=== PATIENT | female | born 1990 | race Caucasian/White ===

== ENCOUNTER → 2016-10-15 | Outpatient (CLI) | payer OTHER ==
[~2016-10-15] MED LIST: BENZ5GEL TOP
--- NOTE | 2016-10-15 18:41 | DIAGNOSTIC IMAGING REPORT ---
CHEST 2 VIEWS ROUTINE HISTORY: COUGH COMPARISON: None. FINDINGS: The lungs are clear. Cardiac silhouette is normal in size. No pleural effusions. No pneumothorax. IMPRESSION: No acute process. Electronically signed by: Rodger Montoya M.D. 10/15/2016 6:39 PM Dictated Date/Time: 10/15/2016 6:38 PM
== END | disposition home or self-care (01) ==
LOC: C.RAD 18:02
PROVIDERS: ATTEND Internal Medicine Geriatric Medicine
DX: R05 Cough (principal)

== ENCOUNTER → 2018-04-05 | Outpatient (CLI) | payer OTHER ==
--- NOTE | 2018-04-05 15:14 | DIAGNOSTIC IMAGING REPORT ---
ULTRASOUND R VENOUS DOPP LOWER EXT UNILAT CLINICAL HISTORY: Right inguinal and leg pain. COMPARISON STUDY: No previous studies for comparison. FINDINGS: Real-time and color flow Doppler imaging were performed. Flow was seen within the femoral, popliteal and calf veins with no intraluminal thrombus demonstrated. The saphenous vein is patent. IMPRESSION: No evidence of right lower extremity DVT Electronically signed by: Omi Guardado M.D. 04/05/2018 3:13 PM Dictated Date/Time: 04/05/2018 3:13 PM
--- NOTE | 2018-04-05 15:30 | DIAGNOSTIC IMAGING REPORT ---
RIGHT ILIAC VENOUS ULTRASOUND CLINICAL HISTORY: Right groin pain. COMPARISON STUDY: No previous studies for comparison. TECHNIQUE: Color and Doppler sonography of the right common iliac and external iliac veins was performed. FINDINGS: The right common iliac and external iliac veins are patent without evidence for thrombus. Please note that the right lower extremity Doppler ultrasound will be reported separately. IMPRESSION: No right common or external iliac vein thrombus. Electronically signed by: Neto Cruz M.D. 04/05/2018 3:28 PM Dictated Date/Time: 04/05/2018 3:26 PM
== END | disposition home or self-care (01) ==
LOC: C.ULTR 14:03
PROVIDERS: ATTEND Family Medicine Adult Medicine
DX: R10.30 Lower abdominal pain, unspecified (principal)

== ENCOUNTER 2020-11-24 10:29 | Inpatient (IN) ==
[2020-11-24] MEDS ORDERED: OXYTOCIN 30 UNITS/500 ML BAG IV PRN ×3 (11:44→23:59)
--- NOTE | 2020-11-24 11:55 | History & Physical Report ---
Date of Service November 24, 2020 Assessment & Plan (1) PROM (premature rupture of membranes): PROM at 0730 this AM. Amnisure test positive on admission. PNL: Rh pos, RI, GBS neg, COVID neg Admit, labs, start IV Epidural when desired; anesthesiology consult placed Proceed with induction of labor per Pitocin augmentation protocol. Anticipate . History of Present Illness Primary Care Provider: Juliet Ambrose MD Tamera Navarrete is a 30 y/o female currently at 40+5 WGA with an LUCY 11/19/20 as determined by US#1 who is here for with prom. Her was complicated by COVID + infection in August 2020; now asymptomatic. She states that around 0730 this AM, she felt a large gush of fluid that has been followed by a persistent "trickle" of fluid. The fluid is described as clear with a pink tinge. It is noted that patient had sexual intercourse around 1:00pm yesterday afternoon (11/23/20). No gross vaginal bleeding. Contractions have been irregular over the past week; she feels that they have increased in intensity and frequency this morning but they are still irregular and not time-able. + movement. AmniSure ROM test (+) on presentation to L&D. Had regular appointments with OB. Blood type: O+ Antibody screen: neg Labs 04/25/20 Rubella: immune VDRL/RPR: NR Gonorrhea: neg Chlamydia: neg HIV: neg HbSAg: neg GBS: negative 10/23/2020 COVID-19 negative today, 11/24/20 Other screens: CF/SMA negative 04/25/20 Allergies Allergy/AdvReac Type Severity Reaction Status Date / Time No Known Drug Allergies Allergy Unknown Verified 11/24/20 10:57 Home Medications Medication Instructions Recorded Confirmed Type prenat.vits,luis,hoo-jiub-vqjhm 1 tab PO DAILY 02/24/19 11/24/20 History Patient History Medical History Anemia COVID-19 affecting , antepartum 08/14/20 Encounter for anatomic survey Family history of factor V deficiency Patient tested negative History of dysplastic nevus History of migraine Shortness of breath with exposure to COVID-19 virus Surgical History H/O knee surgery R knee. H/O oral surgery [place] teeth - 2009'. Family History Father Alcohol abuse Mother Factor V Leiden mutation Skin cancer Aunt Ovarian cancer age 30's Breast cancer 2 maternal aunts- 40's and 50's Myocardial infarction age 40's Grandfather Prostate cancer age 40's Denies family history of Colorectal cancer Social History Smoking Status: Never smoker Hx Alcohol Use: No Hx Substance Use: No Preferred Language: Malaysian Communication Ability: Effective Visual Impairment: No Limitations Hearing Ability: Normal Language Specialist Required: No Beliefs That Will Affect Care: None marital status: marital status details: Nathan (33) [phone] Current Living Situation: Spouse Current Living Situation Comment: Nathan- current occupational status: employed current occupation: RN with [employer] Other Information That Helps Us Care for You: No Feels Safe at Home: Yes Safety Concerns: Feels Safe At This Time Childhood Exposure to Second-Hand Smoke: Yes Dental Care, Regularly: Yes Physical Activity Frequency: 5-6 Times per Week Seatbelt Use: always Sunscreen Use: Yes Assistive Devices: None Review of Systems Denies fever or chills. Denies shortness of breath or cough. Denies chest pain. Denies breast pain. Denies dysuria or hematuria. Denies leg pain or leg swelling. Denies headache or changes in vision. Physical Exam Physical Exam: General: Alert, oriented. No acute distress. Cardiac: Regular rate and rhythm, no murmurs/rubs/gallops. Respiratory: Clear to auscultation bilaterally a/p, no wheezes/rales/rhonchi. No increased work of breathing. Symmetrical chest rise. No respiratory distress. Abdomen: Gravid. Vertex position. + heart tones. - palpable contractions. EFW 7-8# Pelvic: Dilation 2.5 cm; Effacement 75%; Station -2; anterior; soft per Dr. Simons External FHT and external uterine monitors used; Category I tracing; moderate FHT variability. Lower Extremities: No lower extremity edema or swelling. No deep calf pain. Results & Data ([facility]) Vital Signs (Past 12 Hours) Vital Signs Temp Pulse Resp BP 11/24/20 10:44 37.0 C 20 11/24/20 10:41 99 H 141/84 H Laboratory Results 11/24/20 11/24/20 11/24/20 Range/Units 12:08 11:57 11:55 WBC 12.52 H (4.8-10.8) K/uL RBC 4.00 L (4.2-5.4) M/uL Hgb 12.7 (12.0-16.0) g/dL Hct 37.7 (37-47) % MCV 94.3 (80-100) fL MCH 31.8 (25-34) pg MCHC 33.7 (32-36) g/dL RDW Std Deviation 48.5 H (36.4-46.3) fL RDW Coeff of Riccardo 14.1 (11.5-14.5) % Plt Count 232 (130-400) K/uL MPV 10.0 (7.4-10.4) fL Amniotic Protein Pending COVID-19 Eval Order SARS-CoV-2, RNA, NAAT NEGATIVE (NEGATIVE) 11/24/20 Range/Units 11:55 WBC (4.8-10.8) K/uL RBC (4.2-5.4) M/uL Hgb (12.0-16.0) g/dL Hct (37-47) % MCV (80-100) fL MCH (25-34) pg MCHC (32-36) g/dL RDW Std Deviation (36.4-46.3) fL RDW Coeff of Riccardo (11.5-14.5) % Plt Count (130-400) K/uL MPV (7.4-10.4) fL Amniotic Protein COVID-19 Eval Order Covid19 [facility] SARS-CoV-2, RNA, NAAT (NEGATIVE) Supervising Physician Co-Signing Physician Notes Patient seen and evaluated and agree with the above findings and plan. Resident Activity Tracking Resident Involvement: Resident Care Provided Care Provided: OB Delivery
[2020-11-24 12:06] LABS: Hematocrit (blood only) 37.7 % (37-47); Hemoglobin 12.7 g/dL (12.0-16.0); Mean Corpuscular Hemoglobin 31.8 pg (25-34); Mean Corpuscular Hgb Conc 33.7 g/dL (32-36); Mean Corpuscular Volume 94.3 fL (80-100); Platelet Count 232 K/uL (130-400); RDW Coefficient of Variation 14.1 % (11.5-14.5); RDW Standard Deviation 48.5 fL (36.4-46.3); White Blood Count 12.52 K/uL (4.8-10.8)
[2020-11-24] MEDS: LACTATED RINGER'S 1,000 ML IV PRN ×2 (13:09→16:41)
--- NOTE | 2020-11-24 15:14 | Labor Progress Brief Note ---
Date of Service November 24, 2020 Subjective Reason For Note: Other went into room to introduce myself to patient as my partner had been involved in her admission and I am drafter electronic. she is receiving pitocin. no pain issues. Assessment & Plan (1) PROM (premature rupture of membranes): (2) Supervision of normal intrauterine in primigravida: pitocin infusing. couple deny questions. fetus categ 1 Admission and Anticipated Discharge Date Admission Date: November 24, 2020 Physical Exam Genitourinary: OB Exam Monitor Tracing: + external FHT monitor used (140 mod variability), + external uterine monitor used (irreg), + category I and + normal FHT variability Results & Data ([facility]) Vital Signs (Past 12 Hours) Vital Signs Temp Pulse Resp BP 11/24/20 15:09 101 H 105/64 11/24/20 14:16 91 H 123/75 11/24/20 13:09 95 H 119/80 11/24/20 12:50 98.4 F 11/24/20 10:44 98.6 F 11/24/20 10:41 99 H 141/84 H Coding Level of Care Code None Diagnoses PROM (premature rupture of membranes) O42.90 Supervision of normal intrauterine in primigravida Z34.00
[2020-11-24] MEDS ORDERED: ePHEDrine sulfate 50 MG/ML AMP ONE (15:34)
[2020-11-24] MEDS ORDERED: SODIUM CHLORIDE 0.9% INJ 10 ML VIAL ONE (15:34)
[2020-11-24] MEDS ORDERED: fentaNYL citrate 100 MCG/2 ML VIAL ONE (15:35)
[2020-11-24] MEDS ORDERED: BUPIVACAINE 0.25% 30 ML VIAL ONE (15:35)
[2020-11-24] MEDS ORDERED: fentaNYL 2MCG/ML ROPIVACAINE 1.25MG/ML 100 ML BAG EPI ONE (15:36)
--- NOTE | 2020-11-24 16:12 | Labor Progress Brief Note ---
Date of Service November 24, 2020 Subjective Reason For Note: Routine Evaluation pt having more pain, pit at 7 Assessment & Plan (1) PROM (premature rupture of membranes): (2) Post term over 40 weeks: (3) Thick meconium stained amniotic fluid: good cx change. c/w pit. fhts categ 1. answered pt questions re: meconium. desires epidural, will consult anesthesia Admission and Anticipated Discharge Date Admission Date: November 24, 2020 Physical Exam Constitutional: WD/WN, vitals as above Genitourinary: Manual OB Exam: + cervical dilation (4-5), + cervical effacement 90%, + station 0 and + amniotic fluid (AROM forebag) meconium OB Exam Monitor Tracing: + external FHT monitor used (135 mod variability), + external uterine monitor used (q2-4), + category I and + normal FHT variability [facility] ([facility]) Vital Signs (Past 12 Hours) Vital Signs Temp Pulse Resp BP 11/24/20 15:09 97.9 F 101 H 18 105/64 11/24/20 14:16 91 H 123/75 11/24/20 13:09 95 H 119/80 11/24/20 12:50 98.4 F 20 11/24/20 10:44 98.6 F 20 11/24/20 10:41 99 H 141/84 H Coding Level of Care Code None Diagnoses PROM (premature rupture of membranes) O42.90 Post term over 40 weeks O48.0 Thick meconium stained amniotic fluid P96.83
--- NOTE | 2020-11-24 16:39 | Anesthesiology Consultation ---
Date of Service November 24, 2020 Assessment & Plan Chart Review Chart Review: Acceptable Risk for Labor Epidural Consults Requested medical & cardiac Pulmonary ASA ASA2 Proposed Anesthesia Anesthesia Type: Labor Epidural Risk / Benefits Reviewed With: PT / POA / Parent / Guardian, Accepts Plan and Informed Consent Obtained History Height/Weight Height: 5 ft 4 in Weight: 84.822 kg Allergies Allergy/AdvReac Type Severity Reaction Status Date / Time No Known Drug Allergies Allergy Unknown Verified 11/24/20 10:57 Medications Home Medications Medication Instructions Recorded Confirmed Last Taken prenat.vits,luis,nyc-gjgf-dktdv 1 tab PO DAILY 02/24/19 11/24/20 11/23/20 18:00 Active Medications Generic Name Dose Route Start Last Admin Trade Name Freq PRN Reason Stop Dose Admin Oxytocin 30 units in 500 mls @ 9 mls/hr 11/24/20 11:44 11/24/20 16:05 Pitocin IV 11/26/20 11:43 0.54 units/hr .Q24H PRN 9 mls/hr Labor Induction/Augmentation Titration Protocol 0.54 UNITS/HR Lactated Ringer's 1,000 mls @ 125 mls/hr 11/24/20 11:44 11/24/20 13:09 Lr IV 11/26/20 11:43 125 mls/hr .Q8H PRN Administration L&D Protocol Protocol Past Medical History Medical History Anemia COVID-19 affecting , antepartum 08/14/20 Encounter for anatomic survey Family history of factor V deficiency Patient tested negative History of dysplastic nevus History of migraine Shortness of breath with exposure to COVID-19 virus Past Family History Family History Father Alcohol abuse Mother Factor V Leiden mutation Skin cancer Aunt Ovarian cancer age 30's Breast cancer 2 maternal aunts- 40's and 50's Myocardial infarction age 40's Grandfather Prostate cancer age 40's Denies family history of Colorectal cancer Past Surgical History Surgical History H/O knee surgery R knee. H/O oral surgery [place] teeth - . Social History Smoking Status: Never smoker Hx Alcohol Use: No Hx Substance Use: No Physical Exam Vital Signs Last Vital Signs Temp 36.6 C 11/24/20 15:09 Pulse 101 H 11/24/20 15:09 Resp 18 11/24/20 15:09 BP 105/64 11/24/20 15:09 ENMT Mouth: no TMJ abnormality Thyromental Distance: > or= 3.5 Finger Breadths Mallampati Class: II Neck normal visual inspection and trachea midline; neck extension not limited Respiratory normal respiratory effort Auscultation: lungs clear to auscultation bilaterally Cardiovascular Rate/Rhythm: regular rate and regular rhythm Heart Sounds: no murmur Musculoskeletal Spine: normal cervical ROM Extremities: full ROM of extremities Neurologic moves all extremities Psychiatric Orientation: alert and oriented x 3 Testing Laboratory Results 11/24/20 11:57
[2020-11-24] MEDS ORDERED: ePHEDrine sulfate 50 MG/ML AMP IV PRN (16:41)
[2020-11-24] MEDS ORDERED: NALOXONE HCL 0.4 MG/1 ML VIAL/CARP IV PRN (16:41)
[2020-11-24] MEDS ORDERED: diphenhydrAMINE 50 MG/ML VIAL IV PRN (16:41)
[2020-11-24] MEDS ORDERED: NALOXONE HCL 1 MG in SODIUM CHLORIDE 0.9% 1000ML 1,000 ML IV PRN (16:41)
[2020-11-24] MEDS ORDERED: METOCLOPRAMIDE HCL 20 MG in SODIUM CHLORIDE 0.9% 50 ML IV PRN (16:41)
[2020-11-24] MEDS ORDERED: ONDANSETRON INJ 2 MG/ML 2 ML VIAL IV PRN (16:41)
[2020-11-24] MEDS ORDERED: PROMETHAZINE HCL 25 MG in SODIUM CHLORIDE 0.9% 50 ML IV PRN (16:41)
[2020-11-24] MEDS ORDERED: fentaNYL 2MCG/ML ROPIVACAINE 1.25MG/ML 100 ML BAG EPI PRN (16:41)
--- NOTE | 2020-11-24 21:01 | Labor Progress Brief Note ---
Date of Service November 24, 2020 Subjective Reason For Note: Routine Evaluation pt comfortable. Assessment & Plan (1) Post term over 40 weeks: (2) PROM (premature rupture of membranes): (3) Thick meconium stained amniotic fluid: good cx change, c/w pitocin. fhts categ 1. Admission and Anticipated Discharge Date Admission Date: November 24, 2020 Physical Exam Constitutional: WD/WN, vitals as above Genitourinary: Manual OB Exam: + cervical dilation (ant lip), + cervical effacement 100% and + station + 2 OB Exam Monitor Tracing: + external FHT monitor used (140 mod variability), + external uterine monitor used (q2), + category I and + normal FHT variability Results & Data ([facility]) Vital Signs (Past 12 Hours) Vital Signs Temp Pulse Resp BP Pulse Ox 11/24/20 20:53 102 H 99 11/24/20 20:48 96 H 100 11/24/20 20:43 95 H 100 11/24/20 20:38 96 H 100 11/24/20 20:34 98 H 125/69 11/24/20 20:33 95 H 100 11/24/20 20:28 95 H 100 11/24/20 20:23 99 H 99 11/24/20 20:20 18 11/24/20 20:18 96 H 100 11/24/20 20:13 101 H 100 11/24/20 20:08 92 H 100 11/24/20 20:06 96 H 118/66 11/24/20 20:03 93 H 100 11/24/20 19:58 92 H 100 11/24/20 19:53 107 H 100 11/24/20 19:48 93 H 18 100 11/24/20 19:43 103 H 100 11/24/20 19:38 96 H 99 11/24/20 19:35 94 H 124/64 11/24/20 19:33 101 H 100 11/24/20 19:28 96 H 100 11/24/20 19:23 98.2 F 104 H 20 100 11/24/20 19:18 103 H 100 11/24/20 19:13 104 H 100 11/24/20 19:08 101 H 99 11/24/20 19:05 100 H 121/69 11/24/20 19:03 108 H 99 11/24/20 19:00 16 04/19/21 18:58 96 H 98 11/24/20 18:53 96 H 97 11/24/20 18:48 95 H 98 11/24/20 18:43 105 H 98 11/24/20 18:38 100 H 99 11/24/20 18:34 107 H 123/66 11/24/20 18:33 98 H 98 11/24/20 18:30 18 11/24/20 18:28 101 H 99 11/24/20 18:23 98 H 98 11/24/20 18:18 102 H 96 11/24/20 18:13 101 H 98 11/24/20 18:08 104 H 97 11/24/20 18:05 102 H 123/67 11/24/20 18:03 95 H 96 11/24/20 18:00 16 11/24/20 17:58 98 H 99 11/24/20 17:53 103 H 91 11/24/20 17:52 95 H 92 11/24/20 17:48 98 H 100 11/24/20 17:43 109 H 98 11/24/20 17:38 89 97 11/24/20 17:33 95 H 97 11/24/20 17:30 92 H 18 125/70 11/24/20 17:28 93 H 97 11/24/20 17:23 94 H 95 11/24/20 17:18 93 H 97 11/24/20 17:17 99 H 128/61 11/24/20 17:15 16 11/24/20 17:13 89 98 11/24/20 17:08 90 96 11/24/20 17:07 88 130/63 11/24/20 17:03 92 H 96 11/24/20 17:00 18 11/24/20 16:59 98 H 128/73 11/24/20 16:58 94 H 120/68 96 11/24/20 16:53 94 H 97 11/24/20 16:48 98.2 F 88 18 97 11/24/20 16:46 86 118/76 11/24/20 16:45 18 11/24/20 16:43 91 H 96 11/24/20 16:42 86 123/56 L 11/24/20 16:38 93 H 119/56 L 96 11/24/20 16:36 97 H 123/62 04/19/21 16:34 99 H 105/64 11/24/20 16:33 110 H 98 11/24/20 16:31 112 H 148/74 H 11/24/20 16:30 22 142/87 H 11/24/20 16:28 118 H 98 11/24/20 16:23 119 H 98 11/24/20 16:21 116 H 131/80 11/24/20 16:19 109 H 150/74 H 11/24/20 16:18 114 H 99 11/24/20 15:09 97.9 F 101 H 18 105/64 11/24/20 14:16 91 H 123/75 11/24/20 13:09 95 H 119/80 11/24/20 12:50 98.4 F 20 11/24/20 10:44 98.6 F 20 11/24/20 10:41 99 H 141/84 H Coding Level of Care Code None Diagnoses Post term over 40 weeks O48.0 PROM (premature rupture of membranes) O42.90 Thick meconium stained amniotic fluid P96.83
[2020-11-24] MEDS ORDERED: MINERAL OIL 30 ML UDC ONE (23:02)
[2020-11-24] MEDS ORDERED: oxyCODONE/ACETAMINOPHEN 5mg/325mg TAB PO PRN (23:59)
[2020-11-24] MEDS ORDERED: OXYTOCIN 20 UNITS in LACTATED RINGER'S 1,000 ML IV SCH (23:59)
--- NOTE | 2020-11-25 00:06 | Delivery Summary ---
Vaginal Delivery Summary Date of Service November 25, 2020 The patient dilated to complete and pushed to deliver a viable male Apgars 8 and 9 via over 3rd degree perineal laceration. Mouth and nose bulb suctioned at perineum. Loose nuchal noted and delivered through. Shoulders and body delivered with ease. was vigorous and crying at . Cord clamped at 30 seconds of life and to maternal abdomen where the cord was then doubly clamped and cut. Placenta delivered spontaneously and intact, three-vessel cord. Hemostasis achieved with dilute pitocin and uterine massage and drainage of the bladder for approximately 50 cc under sterile conditions. Laceration repaired in layers with 2-0 and 3-0 vicryl, rectal negative for sutures. Small periurethral laceration noted with bleeding and hemostasis achieved with 2 interrupted sutures of 4-0 vicryl. Catheter passed after that repair and no impedence of placement noted. Cervix and sulci intact. EBL 300 cc. Mother and baby stable recovery. Will given one dose kefzol iv. Vaginal Delivery Summary and 3rd Degree [place] [facility] [place] Charge Vaginal Delivery Codes: 25338 global code for the antepartum, delivery, and post- Delivery Type Details: and 3rd Degree LAC
[2020-11-25] MEDS ORDERED: ceFAZolin 2000MG 2,000 MG/15 ML SYR IV ONE (00:15)
[2020-11-25] MEDS ORDERED: HYDROCORTISONE ACETATE 25 MG SUPP PR PRN (00:22)
[2020-11-25] MEDS ORDERED: SUPERCREAM 0.870% 15 GM JAR EXT PRN (00:22)
[2020-11-25] MEDS ORDERED: BENZOCAINE 20% AER SPR 82.5 GM CAN EXT PRN (00:22)
[2020-11-25] MEDS ORDERED: DIPHTHERIA/TETANUS/PERTUSSIS 0.5 ML SYR/VIAL IM ONE (00:22)
[2020-11-25] MEDS: IBUPROFEN 600 MG TAB PO PRN ×5 (02:21→20:56)
--- NOTE | 2020-11-25 07:27 | Obstetrical Progress Note ---
Date of Service <Chantal Mueller DO - Last Filed: 11/25/20 07:55> November 25, 2020 Assessment & Plan <Chantal Mueller DO - Last Filed: 11/25/20 07:55> (1) state: PPD #1 - PNL: Rh pos, RI, GBS neg, COVID neg - Feels well today. Eating well, voiding well, ambulating well. - Pain well controlled with ibuprofen 600mg Q4H PRN - Routine care -- OOB, ambulation, diet progression as tolerated - After discharge will have 6 week follow-up with Dr. Espinosa. Subjective <Chantal Mueller DO - Last Filed: 11/25/20 07:55> Tamera Navarrete is a 30 y/o female who is PPD #1 following spontaneous vaginal delivery after prom at 40+5 weeks. She reports feeling well overall this morning. Minimal abdominal cramping and 1/10 pain well managed on analgesics. Voiding without difficulty; some external burning near lac repair site. She does report some rectal pain and sensation of "difficulty clenching." Tolerating meals overnight without difficulty, nausea, or vomiting. Patient has been able to ambulate some. She is passing gas. Has persistent lochia with some improvement this morning. Currently . Review of Systems Denies fever or chills. Denies shortness of breath or cough. Denies chest pain. Denies breast pain. Denies dysuria. Denies leg pain or leg swelling. Denies headache or changes in vision. Physical Exam <Chantal Mueller DO - Last Filed: 11/25/20 07:55> General: Alert, oriented. No acute distress. Cardiac: Regular rate and rhythm. No murmurs. Respiratory: Clear to auscultation bilaterally a/p, no wheezes/rales/rhonchi. No increased work of breathing. Symmetrical chest rise. No respiratory distress. Abdomen: Soft, nontender, nondistended. Bowel sounds present. Uterus: Uterine fundus firm, palpable 2 cm below umbilicus. Lower Extremities: No lower extremity edema or swelling. No deep calf pain. Jeanine's negative bilaterally. Results & Data ([facility]) <Chantal Mueller DO - Last Filed: 11/25/20 07:55> Vital Signs (Past 12 Hours) Vital Signs Temp Pulse Pulse Resp BP BP Pulse Ox 11/25/20 02:30 36.8 C 96 H 20 133/74 100 11/25/20 02:02 113 H 113/60 11/25/20 02:00 18 11/25/20 01:47 110 H 110/58 L 11/25/20 01:32 109 H 111/57 L 11/25/20 01:30 18 11/25/20 01:17 109 H 123/57 L 11/25/20 01:02 104 H 115/57 L 11/25/20 01:00 18 11/25/20 00:47 105 H 121/60 11/25/20 00:45 18 11/25/20 00:32 111 H 128/62 11/25/20 00:30 18 11/25/20 00:17 109 H 116/58 L 11/25/20 00:15 18 11/25/20 00:13 103 H 124/66 11/25/20 00:00 37.2 C 116 H 18 128/61 11/24/20 23:48 110 H 97 11/24/20 23:43 118 H 97 11/24/20 23:38 121 H 98 11/24/20 23:33 119 H 97 11/24/20 23:28 109 H 97 11/24/20 23:23 125 H 97 11/24/20 23:18 112 H 97 11/24/20 23:13 110 H 98 11/24/20 23:08 114 H 98 11/24/20 23:04 116 H 127/61 11/24/20 23:03 121 H 98 11/24/20 22:58 118 H 98 11/24/20 22:53 113 H 98 11/24/20 22:48 140 H 97 11/24/20 22:43 139 H 99 11/24/20 22:38 106 H 98 11/24/20 22:33 102 H 98 11/24/20 22:28 121 H 98 11/24/20 22:23 109 H 98 11/24/20 22:18 104 H 98 11/24/20 22:13 106 H 99 11/24/20 22:11 18 11/24/20 22:08 106 H 98 11/24/20 22:05 114 H 130/74 11/24/20 22:03 116 H 98 11/24/20 21:58 115 H 98 11/24/20 21:53 105 H 97 11/24/20 21:48 36.9 C 108 H 18 98 11/24/20 21:43 118 H 98 11/24/20 21:38 117 H 98 11/24/20 21:35 123 H 120/72 11/24/20 21:33 125 H 100 11/24/20 21:28 114 H 100 11/24/20 21:23 115 H 100 11/24/20 21:18 118 H 100 11/24/20 21:13 109 H 100 11/24/20 21:08 116 H 100 11/24/20 21:04 106 H 130/60 11/24/20 21:03 113 H 100 11/24/20 20:58 37.0 C 117 H 18 100 11/24/20 20:53 102 H 99 11/24/20 20:48 96 H 100 11/24/20 20:43 95 H 100 11/24/20 20:38 96 H 100 11/24/20 20:34 98 H 125/69 11/24/20 20:33 95 H 100 11/24/20 20:28 95 H 100 11/24/20 20:23 99 H 99 11/24/20 20:20 18 11/24/20 20:18 96 H 100 11/24/20 20:13 101 H 100 11/24/20 20:08 92 H 100 11/24/20 20:06 96 H 118/66 11/24/20 20:03 93 H 100 11/24/20 19:58 92 H 100 11/24/20 19:53 107 H 100 11/24/20 19:48 93 H 18 100 11/24/20 19:43 103 H 100 11/24/20 19:38 96 H 99 11/24/20 19:35 94 H 124/64 11/24/20 19:33 101 H 100 11/24/20 19:28 96 H 100 <Kemi Espinosa MD, FACOG - Last Filed: 11/25/20 08:05> Co-Signing Physician Notes Resident Physician Supervision Note: I was present with Dr. Mueller during the history and exam. I discussed the case with the resident and agree with the findings and plan as documented in the note. Any exceptions or clarifications are listed here: pt with soreness of buttocks, reviewed 3rd degree laceration and healing. she denies further ?s. ff 2 down, nt. ext nt calves. routine pp care. /rhpos/ri. Documented By: Kemi Espinosa MD, FACOG Resident Activity Tracking <Chantal Mueller, DO - Last Filed: 11/25/20 07:55> Resident Involvement: Resident Care Provided Care Provided: OB Delivery
[2020-11-25] MEDS: DOCUSATE SODIUM 100 MG CAP PO SCH ×2 (08:52→20:56)
[2020-11-25] MEDS: PRENATAL VITAMIN 1 TAB PO SCH (08:52)
[2020-11-25] MEDS: ACETAMINOPHEN 325 MG TAB PO PRN (12:19)
--- NOTE | 2020-11-25 12:39 | Anesthesia Procedure Note ---
Date of Service November 25, 2020 Anesthesia Post Epidural Note Vital Signs Vital Signs: Temp Pulse Resp BP Pulse Ox 36.7 C 88 21 114/72 96 11/25/20 08:15 11/25/20 08:15 11/25/20 08:15 11/25/20 08:15 11/25/20 08:15 Notes Mental Status: alert / awake / arousable Nausea / Vomiting: adequately controlled Pain: adequately controlled Airway Patency, RR, SpO2: stable & adequate BP & HR: stable & adequate Hydration State: stable & adequate Neuraxial Anesthesia: was administered and sensory block is resolving Anesthetic Complications: no major complications apparent and Pt Satisfied with anesthetic care Epidural: Removed without complications and With tip intact
[2020-11-26] MEDS: ACETAMINOPHEN 325 MG TAB PO PRN (00:25)
--- NOTE | 2020-11-26 07:51 | Obstetrical Progress Note ---
Date of Service <Chantal Mueller DO - Last Filed: 11/26/20 07:51> November 26, 2020 Assessment & Plan <Chantal Mueller DO - Last Filed: 11/26/20 07:51> (1) state: PPD #2 - PNL: Rh pos, RI, GBS neg, COVID neg - Eating well, voiding well, ambulating well. - Pain well controlled with ibuprofen 600mg Q4H PRN - Routine care -- OOB, ambulation, diet progression as tolerated - After discharge will have 6 week follow-up with Dr. Espinosa. - Plan for d/c home today after US as noted below for right calf pain. (2) Right calf pain: Right calf pain since yesterday. Will get RLE doppler to evaluate for DVT. Also w/ MACKAY. Will continue to monitor throughout the day. If US is negative and MACKAY worsens/signs of hypoxia, can proceed with CTA w/ PE protocol. Subjective <Chantal Mueller DO - Last Filed: 11/26/20 07:51> Tamera Navarrete is a 30 y/o female who is PPD #2 following spontaneous vaginal delivery at 40+5 weeks. Patient did have a 3rd degree laceration; she reports some buttocks pain/soreness. She also complains of pain in her right calf; patient notes a hx of lower extremity asymmetry but states that the right calf is more painful and is exacerbated with walking. She also has MACKAY, even with mild activity such as walking to the bathroom and chaning her pad. Mild abdominal cramping and 4-5/10 pain well managed on analgesics. Voiding without dysuria. Tolerating meals overnight without difficulty, nausea, or vomiting. Patient has been able to ambulate some. She is passing gas. Has persistent lochia with some improvement this morning. Currently . Review of Systems Denies fever or chills. + dyspnea on exertion. Denies SOB at rest. Denies chest pain. Denies breast pain. Denies dysuria. + RLE pain. Denies headache or changes in vision. Physical Exam <Chantal Mueller DO - Last Filed: 11/26/20 07:51> General: Alert, oriented. No acute distress. Cardiac: Regular rate and rhythm. No murmurs. Respiratory: Clear to auscultation bilaterally a/p, no wheezes/rales/rhonchi. No increased work of breathing. Symmetrical chest rise. No respiratory distress. Abdomen: Soft, nontender, nondistended. Bowel sounds present. Uterus: Uterine fundus firm, palpable 2 cm below umbilicus. Lower Extremities: Minimal right lower extremity tenderness with deep calf squeeze. No left deep calf pain. Jeanine's positive RLE. Results & Data ([facility]) <Chantal Mueller DO - Last Filed: 11/26/20 07:51> Vital Signs (Past 12 Hours) Vital Signs Temp Pulse Resp BP Pulse Ox 11/26/20 00:20 36.7 C 90 20 115/71 97 <Zulema Hebert DO - Last Filed: 11/26/20 08:28> Co-Signing Physician Notes Resident Physician Supervision Note: I was present with Dr. Mueller during the history and exam. I discussed the case with the resident and agree with the findings and plan as documented in the note. Any exceptions or clarifications are listed here: PPD#2 doing well, except leg pain/swelling as mentioned above. Will obtain imaging. Documented By: Zulema Hebert DO Resident Activity Tracking <Chantal Mueller DO - Last Filed: 11/26/20 07:51> Resident Involvement: Resident Care Provided Care Provided: OB Delivery
--- NOTE | 2020-11-26 08:38 | Ultrasound Report ---
RIGHT LOWER EXTREMITY VENOUS DOPPLER CLINICAL HISTORY: RLE calf pain, COMPARISON STUDY: Right lower extremity venous Doppler ultrasound September 25, 2020. TECHNIQUE: Sonography of the deep venous system of the right lower extremity was performed. Compress ion and augmentation were evaluated. FINDINGS: The right common femoral, superficial femoral and popliteal veins were compressible. Augme ntation was normal. Flow was shown within the deep calf vessels. IMPRESSION: No evidence of deep venous thrombus within the right lower extremity. ACT 112: Negative or not required by law. Electronically signed by: Neto Cruz M.D. 11/26/2020 8:37 AM
[2020-11-26] MEDS: IBUPROFEN 600 MG TAB PO PRN (09:03)
[2020-11-26] MEDS: DOCUSATE SODIUM 100 MG CAP PO SCH (09:03)
[2020-11-26] MEDS: PRENATAL VITAMIN 1 TAB PO SCH (09:04)
[2020-11-26 12:46] LABS: Hematocrit (blood only) 34.1 % (37-47); Hemoglobin 11.5 g/dL (12.0-16.0)
--- NOTE | 2020-11-26 16:57 | Obstetrical Progress Note ---
Date of Service November 26, 2020 Assessment & Plan (1) state: She says she feels comfortable now and is convinced her SOB is related to underlying anxiety. Anxiety was also increased with issues. She was able to get more guidance with nursing and now feels much more confident with . patient declines CTA -will discharge to home with instructions to return to the ER for increased SOB, chest pain, pain with inspiration. Subjective Ambulation: ambulating normally Voiding: no voiding problems Diet Tolerance:: regular diet doppler of right leg was negative. she continues to have SOB with minor activity but no pain with deep inspiration or chest pressure. at this point, she feels her SOB is related to her anxiety and perineal pain from a 3rd degree tear. patient declines CTA to rule out PE. Physical Exam Constitutional WD/WN, vitals as above Psychiatric A+Ox3, euthymic affect Results & Data ([facility]) Vital Signs (Past 12 Hours) Vital Signs Temp Pulse Resp BP Pulse Ox 11/26/20 08:10 98.1 F 96 H 18 109/76 98
== END 2020-11-26 17:55 | disposition home or self-care (01) | DRG 768 ==
LOC: OPB 10:29 → 4S1 10:30 → 4S2 11-25 02:30